=== PATIENT | male | born 1950 | race Hispanic/Latino ===

== ENCOUNTER 2022-03-23 16:44 | Emergency (ER) | payer OTHER ==
[2022-03-23] MEDS ORDERED: NA CHLORIDE 0.9% 1,000 ML ONE (17:43)
[2022-03-23 18:02] LABS: Absolute Lymphocytes (CBC) 2.5 K/uL (0.7-4.9); Hematocrit 38.4 % (39.6-49.0); Lymphocytes % 33.9 % (15.3-44.8); MCV 90.6 fL (80-100); MPV 7.9 fL (7.6-11.3); RBC Red Blood Cell Count 4.23 M/uL (4.33-5.43)
[2022-03-23 18:16] LABS: Potassium 3.6 mmol/L (3.5-5.1)
--- NOTE | 2022-03-23 19:36 | EDPHYS ---
Physician Documentation [facility] Name: Savage Ruelas Age: 72 yrs Sex: Male : 1950 Arrival Date: 03/23/2022 Time: 16:47 Bed 11 Private MD: Paxton Hayden V ED Physician Fitz Yang HPI: 03/23 17:29 This 72 yrs old Male presents to ER via Wheelchair with complaints of Heat pm1 Exposure, Cough. 17:29 Onset: The symptoms/episode began/occurred yesterday. Associated signs and symptoms: pm1 Pertinent positives: cough, sore throat, Pertinent negatives: abdominal pain, chest pain, fever, shortness of breath, vomiting. Modifying factors: The patient symptoms are alleviated by nothing, the patient symptoms are aggravated by Heat exposure from broken AC unit in his house. The patient or guardian reports cough, flu symptoms, Body aches and sore throat. Severity of symptoms: in the emergency department the symptoms are actually worse. The patient has not experienced similar symptoms in the past. The patient has not recently seen a physician. 72-year-old male presents to the ER with complaints of heat exposure. His AC unit stopped working yesterday. And he has been sweating throughout the night. Patient also reports yesterday that he started having symptoms cough sore throat. Patient reports feeling dehydrated. Historical: - Allergies: 19:54 No Known Allergies; vc1 - Immunization history:: Adult Immunizations up to date. - Social history:: Smoking status: Patient denies any tobacco usage or history of. ROS: 17:29 Cardiovascular: Negative for chest pain, palpitations, and edema, Abdomen/GI: Negative pm1 for abdominal pain, nausea, vomiting, diarrhea, and constipation, Back: Negative for injury and pain, MS/Extremity: Negative for injury and deformity, Skin: Negative for injury, rash, and discoloration, Neuro: Negative for headache, weakness, numbness, tingling, and seizure. 17:29 Constitutional: Positive for body aches, Negative for fever, poor PO intake. 17:29 Respiratory: Positive for cough, Negative for shortness of breath. 17:29 All other systems are negative. Exam: 17:29 Constitutional: This is a well developed, well nourished patient who is awake, alert, pm1 and in no acute distress. Head/Face: Normocephalic, atraumatic. 17:29 Back: No spinal tenderness. No costovertebral tenderness. Full range of motion. Skin: Warm, dry with normal turgor. Normal color with no rashes, no lesions, and no evidence of cellulitis. MS/ Extremity: Pulses equal, no cyanosis. Neurovascular intact. Full, normal range of motion. 17:29 Cardiovascular: Exam negative for acute changes, Rate: normal, Rhythm: regular, Pulses: no pulse deficits are appreciated, Heart sounds: normal. 17:29 Respiratory: Exam negative for acute changes, respiratory distress, shortness of breath, Breath sounds: are clear throughout. 17:29 Abdomen/GI: Inspection: obese Palpation: abdomen is soft and non-tender, in all quadrants. 17:29 Neuro: Exam negative for acute changes, Orientation: is normal, Mentation: is normal, Motor: is normal, moves all fours. Vital Signs: 17:25 BP 152 / 69; Pulse 77; Resp 18; Temp 97.0; Pulse Ox 97% on R/A; iw 19:52 Pulse 73; Resp 18; Pulse Ox 98% ; vc1 19:56 BP 157 / 74; vc1 MDM: 17:31 Patient medically screened. pm1 19:34 Data reviewed: vital signs. Data interpreted: Pulse oximetry: on room air is 97 %. pm1 Interpretation: normal. Counseling: I had a detailed discussion with the patient and/or guardian regarding: the historical points, exam findings, and any diagnostic results supporting the discharge/admit diagnosis, lab results, the need for outpatient follow up, to return to the emergency department if symptoms worsen or persist or if there are any questions or concerns that arise at home. 03/23 17:29 Order name: CBC with Diff; Complete Time: 18:16 pm1 03/23 17:29 Order name: BMP; Complete Time: 18:29 pm1 03/23 17:29 Order name: CPK; Complete Time: 18:29 pm1 03/23 17:29 Order name: COVID-19 SARS RT PCR (Document "Date of Onset" if Symptomatic); Complete pm1 Time: 19:34 03/23 17:29 Order name: Flu; Complete Time: 19:23 pm1 03/23 17:29 Order name: Strep; Complete Time: 19:03 pm1 03/23 17:29 Order name: IV Saline Lock; Complete Time: 19:49 pm1 03/23 17:30 Order name: Urine Dipstick-Ancillary (obtain specimen) pm1 03/23 18:48 Order name: Throat Culture EDMS Administered Medications: 17:45 Drug: NS 0.9% 1000 ml Route: IV; Rate: 1000 ml; Site: left antecubital; iw Disposition Summary: 03/23/22 19:35 Discharge Ordered Location: Home pm1 Problem: new pm1 Symptoms: have improved pm1 Condition: Stable pm1 Diagnosis - Dehydration pm1 - Exposure to excessive natural heat, initial encounter pm1 - Acute upper respiratory infection, unspecified pm1 Followup: pm1 - With: Emergency Department - When: As needed - Reason: Worsening of condition Followup: pm1 - With: Private Physician - When: 2 - 3 days - Reason: Recheck today's complaints, Continuance of care, Re-evaluation by your physician Discharge Instructions: - Discharge Summary Sheet pm1 - Dehydration, Elderly pm1 - Upper Respiratory Infection, Adult pm1 - Rehydration, Elderly pm1 - Preventing Heat Exhaustion, Adult pm1 Forms: - Medication Reconciliation Form pm1 - Thank You Letter pm1 - Antibiotic Education pm1 - Prescription Opioid Use pm1 - Work release form vc1 Signatures: Dispatcher [employer] Liyah Funk RN RN iw Girish Brown, BUSINESS ANALYSIS CONSULTANT BUSINESS ANALYSIS CONSULTANT pm1 Arianna Delgado RN RN vc1
--- NOTE | 2022-03-23 19:36 | ER ---
Nurse's Notes [facility] Name: Savage Ruelas Age: 72 yrs Sex: Male : 1950 Arrival Date: 03/23/2022 Time: 16:47 Bed 11 Private MD: Paxton Hayden V Diagnosis: Dehydration;Exposure to excessive natural heat, initial encounter;Acute upper respiratory infection, unspecified Presentation: 03/23 17:25 Chief complaint: Patient states: my AC gave out and i overheated, also has flu/covid iw symptoms. Coronavirus screen: At this time, the client does not indicate any symptoms associated with coronavirus-19. Ebola Screen: Patient negative for fever greater than or equal to 101.5 degrees Fahrenheit, and additional compatible Ebola Virus Disease symptoms Patient denies exposure to infectious person. Patient denies travel to an Ebola-affected area in the 21 days before illness onset. No symptoms or risks identified at this time. Initial Sepsis Screen: Does the patient meet any 2 criteria? No. Patient's initial sepsis screen is negative. Does the patient have a suspected source of infection? No. Patient's initial sepsis screen is negative. Risk Assessment: Do you want to hurt yourself or someone else? Patient reports no desire to harm self or others. Onset of symptoms was March 23, 2022. 17:25 Method Of Arrival: Wheelchair iw 17:25 Acuity: ZAKI 3 iw Triage Assessment: 19:53 General: Appears in no apparent distress. Behavior is calm, cooperative, appropriate vc1 for age. Pain: Denies pain. Neuro: Level of Consciousness is awake, alert, obeys commands, Oriented to person, place, time, situation, none. Cardiovascular: Capillary refill < 3 seconds Patient's skin is warm and dry. Respiratory: Reports cough that is. GI: No deficits noted. : No signs and/or symptoms were reported regarding the genitourinary system. Derm: Skin is intact, is healthy with good turgor, Skin temperature is warm. Historical: - Allergies: 19:54 No Known Allergies; vc1 - Immunization history:: Adult Immunizations up to date. - Social history:: Smoking status: Patient denies any tobacco usage or history of. Screenin:53 Abuse screen: Denies threats or abuse. Nutritional screening: No deficits noted. vc1 Tuberculosis screening: No symptoms or risk factors identified. Fall Risk None identified. Assessment: 19:56 Reassessment: Patient and/or family updated on plan of care and expected duration. Pain vc1 level reassessed. Patient is alert, oriented x 3, equal unlabored respirations, skin warm/dry/pink. Patient denies pain at this time. Patient states feeling better. Patient states symptoms have improved. Vital Signs: 17:25 BP 152 / 69; Pulse 77; Resp 18; Temp 97.0; Pulse Ox 97% on R/A; iw 19:52 Pulse 73; Resp 18; Pulse Ox 98% ; vc1 19:56 BP 157 / 74; vc1 ED Course: 16:47 Patient arrived in ED. am2 16:47 Paxton Hayden MD is Private Physician. am2 17:26 Triage completed. iw 17:30 [facility] pm1 17:30 Fitz Yang MD is Attending Physician. pm1 19:53 Arm band placed on left wrist. vc1 19:54 Patient has correct armband on for positive identification. vc1 19:55 No provider procedures requiring assistance completed. IV discontinued, intact, vc1 bleeding controlled, No redness/swelling at site. Pressure dressing applied. Administered Medications: 17:45 Drug: NS 0.9% 1000 ml Route: IV; Rate: 1000 ml; Site: left antecubital; iw Medication: 19:56 VIS not applicable for this client. vc1 Outcome: 19:35 Discharge ordered by MD. pm1 19:56 Discharged to home ambulatory. vc1 19:56 Condition: improved 19:56 Discharge instructions given to patient, Instructed on discharge instructions, follow up and referral plans. Demonstrated understanding of instructions, follow-up care. 19:58 Patient left the ED. vc1 Signatures: Liyah Lundy RN RN iw Girish Brown NP [employer] CALF GRADER pm1 Mae Thomas am2 Arianna Delgado RN RN vc1 Corrections: (The following items were deleted from the chart) 17:32 17:25 Pulse 77bpm; Resp 18bpm; Pulse Ox 97% RA; Temp 97.0F; iw iw
[2022-03-23 20:25] VITALS: TEMP 97
[2022-03-23 20:26] VITALS: O2SAT 98
[2022-03-23 20:27] VITALS: BP 157/74
== END 2022-03-23 19:58 | disposition home or self-care (01) ==
LOC: ER 16:44
DX: E86.0 Dehydration (principal); X30.XXXA Exposure to excessive natural heat, initial encounter; J06.9 Acute upper respiratory infection, unspecified; Z20.822 Contact with and (suspected) exposure to COVID-19
CPT/HCPCS: 87070; 85025; 80048; 36415; 82550; 87081; 87804 ×2; U0003; J7030

== ENCOUNTER 2023-01-16 23:06 | Emergency (ER) | payer OTHER ==
--- OUTSIDE RECORDS SUMMARY | 2023-01-16 23:09 | XMS REPORT | Continuity of Care Document ---
:1950 Author Organization [facility] t Address [address] [place] [address] Care Team Providers Name Role Phone Paxton Hayden MD Primary Care Physician PAXTON HAYDEN Attending Clinician Unavailable Problems This patient has no known problems. Allergies, Adverse Reactions, Alerts This patient has no known allergies or adverse reactions. Social History Social Habit Start Date Stop Date Quantity Comments Source Gender identity [facility] Sexual orientation Method [facility] Sex Assigned At [birth year] [facility] 00:00:00 00:00:00 Smoking Status Start Date Stop Date Source Tobacco smoking consumption unknown [facility] Medications This patient has no known medications. Procedures This patient has no known procedures. Plan of Care Planned Activity Planned Date Details Comments Source Future Scheduled 2022-12-11 65+ [facility] 23:18:55 VACCINE (1 - PCV) [code = 65+ PNEUMOCOCCAL VACCINE (1 - PCV)] Future Scheduled 2022-12-11 INFLUENZA VACCINE [facility] Test 23:18:55 [code = INFLUENZA VACCINE] Future Scheduled 2022-12-11 COVID-19 VACCINE (#1) [facility] Test 23:18:55 [code = COVID-19 VACCINE (#1)] Future Scheduled 2022-12-11 Hepatitis C screening [facility] Test 23:18:55 (procedure) [code = 746833925] Future Scheduled 2022-12-11 COLONOSCOPY SCREENING [facility] Test 23:18:55 [code = COLONOSCOPY SCREENING] Future Scheduled 2022-12-11 SHINGLES VACCINES ([address] [facility] Test 23:18:55 of 2) [code = SHINGLES VACCINES (1 of 2)] Future Scheduled 2022-09-25 65[facility] 11:26:58 VACCINE (1 - PCV) [code = 65+ PNEUMOCOCCAL VACCINE (1 - PCV)] Future Scheduled 2022-09-25 [facility]ZA [facility]ACCINE [facility] Test 11:26:58 [code = INFLUENZA VACCINE] Future Scheduled 2022-09-25 [facility] (#[facility] 11:26:58 [code = COVID-19 VACCINE (#1)] Future Scheduled 2022-09-25 [facility] 11:26:58 (procedure) [code = [id number]] Future Scheduled 2022-09-25 [facility] 11:26:58 [code = COLONOSCOPY SCREENING] Future Scheduled 2022-09-25 SHINGLES VACCINES ([address] [facility] Test 11:26:58 of 2) [code = SHINGLES VACCINES (1 of 2)] Future Scheduled 2022-09-25 65+ [facility]CCAL [facility] Test 11:26:58 VACCINE (1 - PCV) [code = 65+ PNEUMOCOCCAL VACCINE (1 - PCV)] Future Scheduled 2022-09-25 [facility]FLUENZA VACCINE [facility] Test 11:26:58 [code = INFLUENZA VACCINE] Future Scheduled 2022-09-25 [facility] 11:26:58 [code = COVID-19 VACCINE (#1)] Future Scheduled 2022-09-25 [facility] 11:26:58 (procedure) [code = [id number]] Future Scheduled 2022-09-25 [facility]CREENING [facility] 11:26:58 [code = COLONOSCOPY SCREENING] Future Scheduled 2022-09-25 SHINGLES VACCINES ([address] [facility] Test 11:26:58 of 2) [code = SHINGLES VACCINES (1 of 2)] Future Scheduled 2022-09-14 COVID-19 VACCINE (#1) [facility] 16:37:59 [code = COVID-19 VACCINE (#1)] Future Scheduled 2022-09-14 [facility] 16:37:59 (procedure) [code = [id number]] Future Scheduled 2022-09-14 COLONOSCOPY SCREENING [facility] Test 16:37:59 [code = COLONOSCOPY SCREENING] Future Scheduled 2022-09-14 SHINGLES VACCINES ([address] [facility] Test 16:37:59 of 2) [code = SHINGLES VACCINES (1 of 2)] Future Scheduled 2022-09-14 65+ [facility]OCOCCAL [facility] Test 16:37:59 VACCINE (1 - PCV) [code = 65+ PNEUMOCOCCAL VACCINE (1 - PCV)] Future Scheduled 2022-09-14 INFLUENZA VACCINE [facility] Test 16:37:59 [code = INFLUENZA VACCINE] Future Scheduled 2022-09-14 COVID-19 VACCINE (#1) [facility] Test 16:37:59 [code = COVID-19 VACCINE (#1)] Future Scheduled 2022-09-14 Hepatitis C screening [facility] Test 16:37:59 (procedure) [code = [id number]] Future Scheduled 2022-09-14 COLONOSCOPY SCREENING [facility] Test 16:37:59 [code = COLONOSCOPY SCREENING] Future Scheduled 2022-09-14 SHINGLES VACCINES ([address] [facility] Test 16:37:59 of 2) [code = SHINGLES VACCINES (1 of 2)] Future Scheduled 2022-09-14 65+ [facility]OCCAL [facility] Test 16:37:59 VACCINE (1 - PCV) [code = 65+ PNEUMOCOCCAL VACCINE (1 - PCV)] Future Scheduled 2022-09-14 INFLUENZA VACCINE [facility] Test 16:37:59 [code = INFLUENZA VACCINE] Future Scheduled 2022-08-28 COLONOSCOPY SCREENING [facility] Test 13:15:08 [code = COLONOSCOPY SCREENING] Future Scheduled 2022-08-28 SHINGLES VACCINES ([address] [facility] Test 13:15:08 of 2) [code = SHINGLES VACCINES (1 of 2)] Future Scheduled 2022-08-28 65+ [facility]OCOCCAL [facility] Test 13:15:08 VACCINE (1 - PCV) [code = 65+ PNEUMOCOCCAL VACCINE (1 - PCV)] Future Scheduled 2022-08-28 INFLUENZA VACCINE [facility] Test 13:15:08 [code = INFLUENZA VACCINE] Future Scheduled 2022-08-28 COVID-19 [facility]ACCINE (#1) [facility] 13:15:08 [code = COVID-19 VACCINE (#1)] Future Scheduled 2022-08-28 Hepatitis C screening [facility] Test 13:15:08 (procedure) [code = [id number]] Encounters Start End Encounter Admission Attending Care Care Encounter Source Date/Time Date/Time Type Type Clinicians Facility Department ID 2021-05-05 2021-05-05 [facility] [id number] [place] 00:00:00 00:00:00 PAXTON [address] 2021-05-05 2021-05-05 [facility] [id number] [place] 00:00:00 00:00:00 PAXTON [address] Results This patient has no known results.
[2023-01-16 23:46] LABS: Absolute Lymphocytes (CBC) 2.3 K/uL (0.7-4.9); Hematocrit 38.9 % (39.6-49.0); Lymphocytes % 31.2 % (15.3-44.8); MPV 7.9 fL (7.6-11.3); RBC Red Blood Cell Count 4.33 M/uL (4.33-5.43)
[2023-01-16 23:55] LABS: Potassium 3.7 mEq/L (3.5-5.1)
--- NOTE | 2023-01-17 01:39 | EDPHYS ---
Physician Documentation [facility] Name: Savage Rueals Age: 72 yrs Sex: Male : 1950 Arrival Date: 01/16/2023 Time: 23:06 Bed 16 Private MD: ED Physician Saurabh Munoz HPI: 01/17 01:07 This 72 yrs old Male presents to ER via Ambulatory with complaints of Blurred kb Vision, Headache. 01:07 The patient is experiencing blurred vision, The patient sustained None. to the left kb eye, caused by an unknown mechanism. Onset: The symptoms/episode began/occurred 2 day(s) ago. Duration: the symptoms are continuous. Aggravated by nothing. Alleviated by nothing. Associated signs and symptoms: Pertinent positives: None. Severity of symptoms: At their worst the symptoms were mild in the emergency department the symptoms are unchanged. The patient has not experienced similar symptoms in the past. The patient has not recently seen a physician. Pt reports slight blurred vision in left eye with headache. States "I can see, it is just a little off. It bothered me a little and tonight at work it bothered me more so I just wanted to come get it checked out. I'm under a lot of stress at work so it might just be that.". Historical: - Allergies: 01:46 No Known Allergies; as6 - Immunization history:: Adult Immunizations up to date. - Social history:: Smoking status: unknown. ROS: 01:07 Constitutional: Negative for fever, chills, and weight loss. kb 01:07 Eyes: Positive for blurry vision. 01:07 Neuro: Positive for headache. 01:07 All other systems are negative. Exam: 00:49 Constitutional: This is a well developed, well nourished patient who is awake, alert, kb and in no acute distress. Head/Face: Normocephalic, atraumatic. Eyes: Pupils equal round and reactive to light, extra-ocular motions intact. Lids and lashes normal. Conjunctiva and sclera are non-icteric and not injected. Cornea within normal limits. Periorbital areas with no swelling, redness, or edema. ENT: Moist Mucous membranes Cardiovascular: Regular rate and rhythm with a normal S1 and S2. No gallops, murmurs, or rubs. No pulse deficits. Respiratory: Respirations even and unlabored. No increased work of breathing. Talking in full sentences Abdomen/GI: Soft, non-tender. No distention Skin: Warm, dry with normal turgor. Normal color. MS/ Extremity: Pulses equal, no cyanosis. Neurovascular intact. Full, normal range of motion. Neuro: Awake and alert, GCS 15, oriented to person, place, time, and situation. Moves all extremities. Normal gait. 00:49 ECG was reviewed by the Attending Physician. Vital Signs: 01/16 23:13 Pulse 76; Resp 19; Temp 98.3(O); Pulse Ox 100% ; kd3 23:13 BP 171 / 70; Weight 117.93 kg; Height 5 ft. 10 in. ; kd3 23:20 Pulse 79; Resp 17; Pulse Ox 96% on R/A; kd3 23:26 BP 166 / 64; kd3 01/17 00:50 BP 142 / 91; Pulse 73; Resp 18 S; Pulse Ox 99% on R/A; as6 01:46 BP 136 / 55; Pulse 74; Resp 18 S; Pulse Ox 97% on R/A; as6 01/16 23:13 Body Mass Index 37.31 (117.93 kg, 177.8 cm) kd3 Visual Acuity: 01:41 Left Eye Visual acuity 20/30, ; Right Eye Visual acuity 20/25, ; Both Eyes Visual as6 acuity 20/25; Without Lenses; MDM: 01/16 23:17 Patient medically screened. 01/17 01:06 Data reviewed: vital signs, nurses notes. kb 01:37 Management of patient was discussed with the following: Dr Munoz. Counseling: I had kb a detailed discussion with the patient and/or guardian regarding: the historical points, exam findings, and any diagnostic results supporting the discharge/admit diagnosis, lab results, radiology results, the need for outpatient follow up, a family practitioner, to return to the emergency department if symptoms worsen or persist or if there are any questions or concerns that arise at home. ED course: Pt states he is feeling better. Just wanted the peace of mind. 01/16 23:34 Order name: CBC with Diff; Complete Time: 00:09 kb 01/16 23:34 Order name: Basic Metabolic Panel; Complete Time: 00:09 kb 01/16 23:32 Order name: CT Head Brain wo Cont kb 01/16 23:34 Order name: CT Maxillofacial W/cont kb 01/16 23:34 Order name: EKG; Complete Time: 23:35 kb 01/16 23:34 Order name: IV Start; Complete Time: 23:34 kb 01/16 23:34 Order name: EKG - Nurse/Tech; Complete Time: 23:57 kb 01/17 01:07 Order name: Visual Acuity; Complete Time: 01:41 kb EC:49 Rate is 71 beats/min. Rhythm is regular. QRS [place] is Normal. [place] interval is normal at kb 178 msec. QRS interval is normal at 100 msec. QT interval is normal at 404 msec. Administered Medications: No medications were administered Disposition: 07:46 Co-signature as Attending Physician, Saurabh Munoz MD I agree with the assessment sp4 and plan of care. I reviewed the patient's care provided by the Advanced Practice Provider and agree with the diagnosis and treatment plan. Disposition Summary: 01/17/23 01:39 Discharge Ordered Location: Home kb Condition: Stable kb Diagnosis - Headache kb - Blurred vision kb Followup: kb - With: Emergency Department - When: As needed - Reason: Worsening of condition Followup: kb - With: Private Physician - When: 2 - 3 days - Reason: Recheck today's complaints, Continuance of care, Re-evaluation by your physician Discharge Instructions: - Discharge Summary Sheet kb - Blurred Vision, Adult kb - General Headache Without Cause, [id number] kb Forms: - Work release form kb - Medication Reconciliation Form kb - Thank You Letter kb - Antibiotic Education kb - Prescription Opioid Use kb Signatures: Dispatcher [employer] EDAntoinette Cobb, ARACELIS-C ARACELIS-Riccardo Saxena RN RN as6 Erika Reyes RN RN kd3 Saurabh Munoz MD MD sp4
--- NOTE | 2023-01-17 01:39 | ER ---
Nurse's Notes [facility] Name: Savage Ruelas Age: 72 yrs Sex: Male : 1950 Arrival Date: 01/16/2023 Time: 23:06 Bed 16 Private MD: Diagnosis: Headache;Blurred vision Presentation: 01/16 23:16 Chief complaint: Patient states: I am having blurred vision on the left eye that kd3 started two days ago. I feel some pain in my eye that feels like its giving me a headache and in my left side of my neck. Ebola Screen: No symptoms or risks identified at this time. Initial Sepsis Screen: Does the patient meet any 2 criteria? No. Patient's initial sepsis screen is negative. Does the patient have a suspected source of infection? No. Patient's initial sepsis screen is negative. Risk Assessment: Do you want to hurt yourself or someone else? Patient reports no desire to harm self or others. Onset of symptoms was January 16, 2023. 23:16 Method Of Arrival: Ambulatory kd3 23:16 Acuity: ZAKI 3 kd3 01/17 01:42 Coronavirus screen: At this time, the client does not indicate any symptoms associated as6 with coronavirus-19. Triage Assessment: 01/16 23:16 General: Appears uncomfortable, Behavior is cooperative, anxious. Pain: Complains of kd3 pain in left eye. Neuro: Level of Consciousness is awake, alert, obeys commands, Oriented to person, place, time, situation. Cardiovascular: Patient's skin is warm and dry. Respiratory: Airway is patent Trachea midline Respiratory effort is even, unlabored, Respiratory pattern is regular, symmetrical. Historical: - Allergies: 01/17 01:46 No Known Allergies; as6 - Immunization history:: Adult Immunizations up to date. - Social history:: Smoking status: unknown. Screenin:57 [facility] ED Fall Risk Assessment (Adult) Score/Fall Risk Level 0 - 2 = Low Risk. Abuse as6 screen: Denies threats or abuse. Denies injuries from another. Nutritional screening: No deficits noted. Tuberculosis screening: No symptoms or risk factors identified. Assessment: 01/16 22:30 General: Appears in no apparent distress. Behavior is calm, cooperative. Pain: as6 Complains of pain in left eye. Neuro: Level of Consciousness is awake, alert, obeys commands, Oriented to person, place, time, situation, Reports numbness in left eye. Respiratory: Respiratory effort is even, unlabored, Respiratory pattern is regular, symmetrical. Vital Signs: 23:13 Pulse 76; Resp 19; Temp 98.3(O); Pulse Ox 100% ; kd3 23:13 BP 171 / 70; Weight 117.93 kg; Height 5 ft. 10 in. ; kd3 23:20 Pulse 79; Resp 17; Pulse Ox 96% on R/A; kd3 23:26 BP 166 / 64; kd3 01/17 00:50 BP 142 / 91; Pulse 73; Resp 18 S; Pulse Ox 99% on R/A; as6 01:46 BP 136 / 55; Pulse 74; Resp 18 S; Pulse Ox 97% on R/A; as6 01/16 23:13 Body Mass Index 37.31 (117.93 kg, 177.8 cm) kd3 Visual Acuity: 01:41 Left Eye Visual acuity 20/30, ; Right Eye Visual acuity 20/25, ; Both Eyes Visual as6 acuity 20/25; Without Lenses; ED Course: 01/16 23:09 Patient arrived in ED. kd3 23:16 Arm band placed on right wrist. kd3 23:17 Antoinette Shaffer FNP-C is [facility]. kb 23:17 Saurabh Munoz MD is Attending Physician. kb 23:17 Triage completed. kd3 23:30 Inserted saline lock: 20 gauge in right antecubital area, using aseptic technique. kd3 Blood collected. 23:35 Riccardo Rosales, MILLIE is Primary Nurse. as6 23:36 Basic Metabolic Panel Sent. kd3 23:36 CBC with Diff Sent. kd3 01/17 00:57 CT Head Brain wo Cont In Process Unspecified. EDMS 00:58 CT Maxillofacial W/cont In Process Unspecified. EDMS 01:42 Bed in low position. Call light in reach. as6 01:42 No provider procedures requiring assistance completed. IV discontinued, intact, as6 bleeding controlled, No redness/swelling at site. Pressure dressing applied. Administered Medications: No medications were administered Medication: 00:57 VIS not applicable for this client. as6 Outcome: 01:39 Discharge ordered by . kb 01:42 Discharged to home ambulatory. as6 01:42 Condition: stable 01:46 Discharge instructions given to patient, Instructed on discharge instructions, follow as6 up and referral plans. Demonstrated understanding of instructions, follow-up care. 01:47 Patient left the ED. as6 Signatures: Dispatcher [employer] Antoinette Kimball, ARACELIS-C ARACELIS-Riccardo Saxena RN RN as6 Erika Reyes RN RN kd3
[2023-01-17 06:02] VITALS: BP 136/55; TEMP 98.3; O2SAT 97
--- NOTE | 2023-01-17 13:53 | RAD REPORT ---
EXAM DESCRIPTION: Head Brain Wo Cont 01/17/2023 1:09 AM CDT CLINICAL HISTORY: 72 years, Male, [employer] COMPARISON: None. FINDINGS: Multiple transaxial tomograms of the brain were obtained from the base of the skull to the vertex without contrast. 2-D multiplanar reformats and the coronal and sagittal plane were performed and reviewed. This exam was performed according to our departmental dose-optimization protocol, which includes auto mated exposure control, adjustment of the mA and/or kV according to patient size and/or use of iterat juanita reconstruction technique. Brain parenchyma demonstrate mild prominence of the sulci and gyri are corresponding to mild cerebral and cerebellar atrophy. There is no midline shift and/or mass effect. There is no evidence for acute intracranial hemorrhage. Lateral ventricles and cisterns displace normal appearance. No intra or extra axial fluid collections were seen. The calvarium is intact with no evidence for fracture. The visualized portions of the paranasal sinuses and orbits demonstrate to be clear. IMPRESSION: No acute intracranial hemorrhage identified. Mild brain atrophy. Electronically signed by: Wilile Billy MD 01/17/2023 1:09 AM CDT Due to temporary technical issues with the PACS/Fluency reporting system, reports are being signed by the in house radiologists without review as a courtesy to insure prompt reporting. The interpreting radiologist is fully responsible for the content of the report.
--- NOTE | 2023-01-17 13:58 | RAD REPORT ---
EXAM DESCRIPTION: Maxillofacial W/Cont CLINICAL HISTORY: FACIAL PAIN TECHNIQUE: Contiguous axial images obtained through the face and paranasal sinuses without IV contra st. Coronal and sagittal reformatted images were provided. This exam was performed according to our departmental dose-optimization program, which includes autom ated exposure control, adjustment of the mA and/or kV according to patient size and/or use of iterati ve reconstruction technique. COMPARISON: None available for comparison FINDINGS: Bones: No acute maxillofacial fracture or deformity. Temporomandibular joints: No dislocation. Paranasal sinuses and mastoid air cells: Mild maxillary sinus mucosal thickening, likely chronic. Orbits: Globes appear intact. No intraconal or extraconal abnormality. Optic nerves appear unremark able. Soft tissues: No evidence of maxillofacial inflammatory changes. There is prominent artifact secondary to dental hardware. IMPRESSION: 1. No acute maxillofacial fracture or deformity. 2. No evidence of maxillofacial inflammatory changes. 3. Mild maxillary sinus mucosal thickening, likely chronic. Electronically signed by: Sammy Fontaine MD 01/17/2023 1:21 AM CDT Due to temporary technical issues with the PACS/Fluency reporting system, reports are being signed by the in house radiologists without review as a courtesy to insure prompt reporting. The interpreting radiologist is fully responsible for the content of the report.
--- NOTE | 2023-01-18 16:01 | EKG ---
Test Date: 2023-01-16 Test Time: 23:52:45 Manager Sql: MEASUREMENT RESULTS: Intervals: Rate: 71 W[place]: 178 QRSD: 100 QT: 372 QTc: 404 [place]: P: 65 W[place]: 178 QRS: 41 T: -11 INTERPRETIVE STATEMENTS: Normal sinus rhythm Incomplete right bundle branch block Septal infarct, age undetermined Abnormal ECG Compared to ECG 02/01/2014 14:34:26 Myocardial infarct finding now present Electronically Signed On 01-18-23 15:57:42 CDT by Ba Sullivan
== END 2023-01-17 01:47 | disposition home or self-care (01) ==
LOC: ER 23:06
DX: R51.9 Headache, unspecified (principal); H53.8 Other visual disturbances
CPT/HCPCS: 85025; 80048; 36415; 70450; 70487; Q9967; 93005